=== PATIENT | female | born 2000 | race Caucasian/White ===

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

== ENCOUNTER 2021-01-01 18:01 | Observation (INO) | payer MEDICAID ==
[~2021-01-01] VITALS: Ht 160 cm; Wt 74.8 kg
[~2021-01-01 18:01] MED LIST: PNV1TABL76 PO
== END 2021-01-01 23:18 | disposition home or self-care (01) ==
LOC: 8 EST LDRP 18:01
PROVIDERS: ADMIT Obstetrics & Gynecology; ATTEND Obstetrics & Gynecology
DX: O42.92 Full-term premature rupture of membranes, unspecified as to length of time between rupture and onset of labor (principal); O36.8130 Decreased fetal movements, third trimester, not applicable or unspecified; Z3A.37 37 weeks gestation of pregnancy
CPT/HCPCS: 59025; 76805; 76817; 76818; G0378; 99281

== ENCOUNTER 2021-01-23 00:48 | Observation (INO) | payer MEDICAID ==
[~2021-01-23] VITALS: Ht 160 cm; Wt 73.5 kg
[2021-01-23] MEDS ORDERED: FERR325T6 PO (03:53)
[2021-01-25] MEDS ORDERED: IBUP-2028 PO (06:24)
== END 2021-01-23 04:00 | disposition home or self-care (01) ==
LOC: 8 EST LDRP 00:48
PROVIDERS: ADMIT Obstetrics & Gynecology; ATTEND Obstetrics & Gynecology
DX: O62.9 Abnormality of forces of labor, unspecified (principal); Z3A.40 40 weeks gestation of pregnancy
CPT/HCPCS: 76805; 76817; 76818; G0378; 99281